=== PATIENT | female | born 1940 | race Caucasian/White ===

== ENCOUNTER 2017-03-24 14:00 | Inpatient (IN) ==
--- NOTE | 2017-03-24 14:57 | Emergency Department Note ---
Disposition Clinical Impression: Confusion Failure to thrive Qualifiers: Failure to thrive age range: in adult Qualified Code(s): R62.7 - Adult failure to thrive Disposition: Admitted As Inpatient Condition: Fair Referrals: Osmar Morrison MD [Primary Care Provider] - Forms: ED Satisfaction Letter Time of Disposition: 19:04 Altered Mental Status HPI - General Chief Complaint: ED Altered Mental Status Stated Complaint: AMS, cancer pt Time Seen by Provider: 03/24/17 14:36 Source: patient, family Limitations: altered mental status Nursing Notes Reviewed: Yes Vital Signs Reviewed: Yes - History of Present Illness HPI Narrative: 77-year-old female with a history of renal cell carcinoma diagnosed in October 2016 who comes in with increasing altered mental status. The patient states that over the last couple of days she's been feeling worse with increased confusion. Recently hospitalized at [facility]. Patient has recently switched her chemotherapy. complaint: altered mental status Onset (ago): day(s) Pain Severity: moderate Context: other Associated symptoms: Reports: other (Altered mental status) - Related Data Home Medications Medication Instructions Recorded Confirmed Atorvastatin Calcium [Lipitor] 20 mg PO HS 12/26/16 03/24/17 Biotin 5,000 mcg PO DAILY 12/26/16 03/24/17 hydroCHLOROthiazide 12.5 mg PO BID 12/26/16 03/24/17 [Hydrochlorothiazide] Cholecalciferol (Vitamin D3) 1,000 unit PO DAILY 03/09/17 03/24/17 [Vitamin D] Ibuprofen [Motrin] 600 mg PO Q8HR PRN 03/09/17 03/24/17 Krill/[place]-3/Dha/Epa/Lipids 1 each PO DAILY 03/09/17 03/24/17 [Krill Oil 300 mg Softgel] Lisinopril [Zestril] 10 mg PO BID 03/09/17 03/24/17 FentaNYL PATCH [Duragesic] 75 mcg TD Q72H 03/24/17 03/24/17 Haloperidol 0.5 mg PO Q6H PRN 03/24/17 03/24/17 Melatonin [Melatin] 3 mg PO HS 03/24/17 03/24/17 Metformin HCl [Glucophage] 1,000 mg PO BID 03/24/17 03/24/17 Omeprazole [PriLOSEC] 20 mg PO DAILY 03/24/17 03/24/17 Ondansetron HCl [Zofran] 4 mg PO AD PRN 03/24/17 03/24/17 OxyCODONE Immed Rel [Roxicodone 10 10 - 20 mg PO Q4H PRN 03/24/17 03/24/17 MG] Polyethylene Glycol 3350 [MiraLAX] 17 gm PO BID PRN 03/24/17 03/24/17 Sennosides [Senna] 17.2 mg PO BID 03/24/17 03/24/17 Allergies Allergy/AdvReac Type Severity Reaction Status Date / Time No Known Allergies Allergy Verified 03/24/17 14:30 All systems ED: reviewed and negative except as stated. Constitutional: Denies: fever, chills, weakness, weight change Eyes: Denies: eye pain, eye discharge, vision change ENT ED: Denies: ear pain, throat pain, dental pain, hearing loss, epistaxis, congestion, dysphagia Cardiovascular: Denies: chest pain, palpitations, dyspnea on exertion, edema, syncope Respiratory: Denies: cough, dyspnea, wheezes, hemoptysis, stridor Gastrointestinal: Denies: abdominal pain, nausea, vomiting, diarrhea, constipation, hematemesis, melena, hematochezia Genitourinary: Denies: dysuria, frequency, hematuria, discharge Musculoskeletal: Denies: back pain, neck pain, arthralgia, myalgia Integumentary: Denies: rash, abrasion, lesions Neurological: Reports: confusion. Denies: headache, weakness, numbness, paresthesias, abnormal gait, vertigo Psychiatric: Denies: anxiety, depression, suicidal thoughts, homicidal thoughts , auditory hallucinations, visual hallucinations Endocrine: Denies: fatigue Hematological/Lymphatic: Denies: easy bleeding, easy bruising Allergic/Immunologic: Denies: facial swelling, urticaria Past Medical History - Past Medical History Medical history: Reports: cancer, diabetes, hyperlipidemia, hypertension, other Psychiatric history: Reports: no psych history SPANISH LINGUIST history: Reports: no SPANISH LINGUIST history - Social History Smoking Status: Never smoker Smokeless Tobacco Status: No Alcohol use: Reports: none Drug use: Reports: none Physical Exam - General Limitations: altered mental status General appearance: alert, in no apparent distress - Head Head exam: atraumatic, normocephalic, normal inspection - Eye Eye exam: Present: normal appearance, PERRL, EOMI - ENT ENT exam: normal exam, normal oropharynx, mucous membranes moist - Neck Neck exam: Present: normal inspection, full ROM, trachea midline - Chest Chest inspection: Present: normal inspection, symmetric chest wall rise - Respiratory Respiratory exam: Present: normal lung sounds bilaterally - Cardiovascular Cardiovascular exam: Present: regular rate, normal rhythm, normal heart sounds - Abdominal Exam Abdominal exam: Present: soft, Non-Tender. Absent: tenderness, distention, guarding, rebound, rigidity - Extremities Exam Extremities exam: Present: normal inspection, full ROM. Absent: tenderness, pedal edema - Expanded Lower Extremity Exam Neurovascular/Tendon exam: Absent: motor deficit, sensory deficit, tendon deficit Gait: observed and normal - Back Exam Back exam: Present: normal inspection, full ROM. Absent: tenderness - Neurological Exam Neurological exam: Present: alert, oriented X3 - Psychiatric Psychiatric exam: Present: normal affect, normal mood - Skin Skin exam: Present: warm, dry, intact, normal color Course - Reevaluation(s) Reevaluation #1: 77-year-old with renal cell carcinoma who comes in with increasing confusion. Patient was admitted for similar complaint at [facility] I did speak to [facility] who indicated that it was accommodation of dehydration possible UTI. The recommendation at this point in time her admission here for IV hydration. Time: 19:04 - Consultations Consultation #1: Discussed with [facility] transfer center they will discuss and call us back with what the recommendations are. Time: 18:24 Consultation #2: Discussed with Dr. Owen GALLEGO, who recommends admission here at the hospital for IV hydration to see if her mentation does not improve Time: 18:56 Consultation #3: Discussed with , admit Time: 19:53 Vital Signs Temperature 97.4 F L 03/24/17 14:30 Pulse Rate 99 03/24/17 14:30 Respiratory Rate 14 03/24/17 14:30 Blood Pressure 121/67 03/24/17 14:30 O2 Sat by Pulse Oximetry 97 03/24/17 14:30 Temperature 97.4 F L 03/24/17 14:30 Pulse Rate 88 03/24/17 16:32 Respiratory Rate 18 03/24/17 16:32 Blood Pressure 150/79 03/24/17 16:32 O2 Sat by Pulse Oximetry 92 03/24/17 16:32 Oxygen Delivery Oxygen Delivery Room Air Altered Mental Status - Lab Data Lab results reviewed: Yes I reviewed the patient's lab results. Result diagrams: 03/24/17 16:12 03/24/17 16:12 Lab Results 03/24/17 03/24/17 03/24/17 Range/Units 15:49 16:12 16:12 WBC 10.6 (4.3-11.1) K/mcL RBC 3.33 L (3.82-4.97) M/mcL Hgb 9.8 L (11.5-15.4) g/dL Hct 30.5 L (35.3-44.9) % MCV 91.6 (83.0-100.0) fL MCH 29.4 (28.0-33.3) pg MCHC 32.1 (31.6-35.5) g/dL RDW 15.5 H (11.5-14.5) % Plt Count 307 (140-400) K/mcL MPV 10.5 (9.4-12.4) fL Immature Gran % 1.9 (0-4) % Seg Neutrophils % 75.7 % Lymphocytes % 9.0 % Monocytes % 9.4 % Eosinophils % 3.6 % Basophils % 0.4 % Neutrophils # 8.0 (1.6-8.9) K/mcL Lymphocytes # 1.0 (0.6-4.6) K/mcL Monocytes # 1.0 (0.0-1.3) K/mcL Eosinophils # 0.4 (0.0-0.6) K/mcL Basophils # 0.0 (0.0-0.2) K/mcL PT 12.0 (9.4-12.1) Seconds INR 1.1 APTT 26.3 (26.0-36.0) Seconds Sodium (136-145) mEq/L Potassium (3.5-5.1) mEq/L Chloride (98-107) mEq/L Carbon Dioxide (23-29) mEq/L BUN (8-23) mg/dL Creatinine (0.60-1.20) mg/dL Est GFR ( Amer) (> 60) Est GFR (Non-Af Amer) (> 60) BUN/Creatinine Ratio (6-26) Glucose (70-105) mg/dL Calculated Osmolality (280-300) Calcium (8.6-10.3) mg/dL Total Bilirubin (0.3-1.0) mg/dL Direct Bilirubin (0.0-0.2) mg/dL Indirect Bilirubin (0.0-1.2) mg/dL AST (13-39) Units/L ALT (7-52) Units/L Alkaline Phosphatase (34-104) Units/L Ammonia (16-53) mcmol/L Troponin I (< 0.04) ng/mL Serum Total Protein (6.4-8.9) g/dL Albumin (3.5-5.7) g/dL Globulin (2.4-3.5) g/dL Albumin/Globulin Ratio (1.1-2.2) Urine Color (Yellow) Urine Clarity (Clear) Urine pH (5.0-8.0) pH Units Ur Specific [place] (1.010-1.025) Urine Protein (Neg-Trace) mg/dL Urine Glucose (UA) (Normal) mg/dL Urine Ketones (Negative) mg/dL Urine Blood (Negative) Urine Nitrite (Negative) Urine Bilirubin (Negative) Urine Urobilinogen (Normal) mg/dL Ur Leukocyte Esterase (Negative) Urine Microscopic RBC (0-3) per hpf Urine Microscopic WBC (0-3) per hpf Ur Squamous Epith Cells (None-Few) per lpf Urine Bacteria (None-Few) per hpf Hyaline Casts (None-Few) per lpf Ur Culture Indicated? (NO) Urine Opiates Screen Positive H (Swmhwm=577) ng/mL Ur Barbiturates Screen Negative (Lpwygl=139) ng/mL Ur Phencyclidine Scrn Negative (Cutoff=25) ng/mL Ur Amphetamines Screen Negative (Quwbim=4434) ng/mL U Benzodiazepines Scrn Negative (Fmonhd=182) ng/mL Urine Cocaine Screen Negative (Cutoff= 300) ng/mL U Marijuana (THC) Screen Negative (Cutoff = 50) ng/mL Ethyl Alcohol (0-10) mg/dL 03/24/17 03/24/17 03/24/17 Range/Units 16:12 16:12 16:12 WBC (4.3-11.1) K/mcL RBC (3.82-4.97) M/mcL Hgb (11.5-15.4) g/dL Hct (35.3-44.9) % MCV (83.0-100.0) fL MCH (28.0-33.3) pg MCHC (31.6-35.5) g/dL RDW (11.5-14.5) % Plt Count (140-400) K/mcL MPV (9.4-12.4) fL Immature Gran % (0-4) % Seg Neutrophils % % Lymphocytes % % Monocytes % % Eosinophils % % Basophils % % Neutrophils # (1.6-8.9) K/mcL Lymphocytes # (0.6-4.6) K/mcL Monocytes # (0.0-1.3) K/mcL Eosinophils # (0.0-0.6) K/mcL Basophils # (0.0-0.2) K/mcL PT (9.4-12.1) Seconds INR APTT (26.0-36.0) Seconds Sodium 127 L (136-145) mEq/L Potassium 3.7 (3.5-5.1) mEq/L Chloride 90 L (98-107) mEq/L Carbon Dioxide 30 H (23-29) mEq/L BUN 18 (8-23) mg/dL Creatinine 1.10 (0.60-1.20) mg/dL Est GFR ( Amer) 59 L (> 60) Est GFR (Non-Af Amer) 48 L (> 60) BUN/Creatinine Ratio 16 (6-26) Glucose 111 H (70-105) mg/dL Calculated Osmolality 267 L (280-300) Calcium 8.8 (8.6-10.3) mg/dL Total Bilirubin 0.4 (0.3-1.0) mg/dL Direct Bilirubin 0.2 (0.0-0.2) mg/dL Indirect Bilirubin 0.2 (0.0-1.2) mg/dL AST 13 (13-39) Units/L ALT 11 (7-52) Units/L Alkaline Phosphatase 101 (34-104) Units/L Ammonia 21 (16-53) mcmol/L Troponin I 0.06 H* (< 0.04) ng/mL Serum Total Protein 5.6 L (6.4-8.9) g/dL Albumin 2.9 L (3.5-5.7) g/dL Globulin 2.7 (2.4-3.5) g/dL Albumin/Globulin Ratio 1.1 (1.1-2.2) Urine Color (Yellow) Urine Clarity (Clear) Urine pH (5.0-8.0) pH Units Ur Specific [place] (1.010-1.025) Urine Protein (Neg-Trace) mg/dL Urine Glucose (UA) (Normal) mg/dL Urine Ketones (Negative) mg/dL Urine Blood (Negative) Urine Nitrite (Negative) Urine Bilirubin (Negative) Urine Urobilinogen (Normal) mg/dL Ur Leukocyte Esterase (Negative) Urine Microscopic RBC (0-3) per hpf Urine Microscopic WBC (0-3) per hpf Ur Squamous Epith Cells (None-Few) per lpf Urine Bacteria (None-Few) per hpf Hyaline Casts (None-Few) per lpf Ur Culture Indicated? (NO) Urine Opiates Screen (Towvzw=542) ng/mL Ur Barbiturates Screen (Jixiqu=302) ng/mL Ur Phencyclidine Scrn (Cutoff=25) ng/mL Ur Amphetamines Screen (Nnigki=8155) ng/mL U Benzodiazepines Scrn (Rkblhi=471) ng/mL Urine Cocaine Screen (Cutoff= 300) ng/mL U Marijuana (THC) Screen (Cutoff = 50) ng/mL Ethyl Alcohol < 10 (0-10) mg/dL 03/24/17 Range/Units 17:21 WBC (4.3-11.1) K/mcL RBC (3.82-4.97) M/mcL Hgb (11.5-15.4) g/dL Hct (35.3-44.9) % MCV (83.0-100.0) fL MCH (28.0-33.3) pg MCHC (31.6-35.5) g/dL RDW (11.5-14.5) % Plt Count (140-400) K/mcL MPV (9.4-12.4) fL Immature Gran % (0-4) % Seg Neutrophils % % Lymphocytes % % Monocytes % % Eosinophils % % Basophils % % Neutrophils # (1.6-8.9) K/mcL Lymphocytes # (0.6-4.6) K/mcL Monocytes # (0.0-1.3) K/mcL Eosinophils # (0.0-0.6) K/mcL Basophils # (0.0-0.2) K/mcL PT (9.4-12.1) Seconds INR APTT (26.0-36.0) Seconds Sodium (136-145) mEq/L Potassium (3.5-5.1) mEq/L Chloride (98-107) mEq/L Carbon Dioxide (23-29) mEq/L BUN (8-23) mg/dL Creatinine (0.60-1.20) mg/dL Est GFR ( Amer) (> 60) Est GFR (Non-Af Amer) (> 60) BUN/Creatinine Ratio (6-26) Glucose (70-105) mg/dL Calculated Osmolality (280-300) Calcium (8.6-10.3) mg/dL Total Bilirubin (0.3-1.0) mg/dL Direct Bilirubin (0.0-0.2) mg/dL Indirect Bilirubin (0.0-1.2) mg/dL AST (13-39) Units/L ALT (7-52) Units/L Alkaline Phosphatase (34-104) Units/L Ammonia (16-53) mcmol/L Troponin I (< 0.04) ng/mL Serum Total Protein (6.4-8.9) g/dL Albumin (3.5-5.7) g/dL Globulin (2.4-3.5) g/dL Albumin/Globulin Ratio (1.1-2.2) Urine Color Yellow (Yellow) Urine Clarity Clear (Clear) Urine pH 6.5 (5.0-8.0) pH Units Ur Specific [place] 1.009 L (1.010-1.025) Urine Protein Negative (Neg-Trace) mg/dL Urine Glucose (UA) Normal (Normal) mg/dL Urine Ketones Negative (Negative) mg/dL Urine Blood Negative (Negative) Urine Nitrite Negative (Negative) Urine Bilirubin Negative (Negative) Urine Urobilinogen Normal (Normal) mg/dL Ur Leukocyte Esterase Trace H (Negative) Urine Microscopic RBC 5-15 H (0-3) per hpf Urine Microscopic WBC 5-15 H (0-3) per hpf Ur Squamous Epith Cells Many H (None-Few) per lpf Urine Bacteria None Seen (None-Few) per hpf Hyaline Casts None Seen (None-Few) per lpf Ur Culture Indicated? NO. (NO) Urine Opiates Screen (Ddqtbl=855) ng/mL Ur Barbiturates Screen (Njkrqi=442) ng/mL Ur Phencyclidine Scrn (Cutoff=25) ng/mL Ur Amphetamines Screen (Lpcgsr=6551) ng/mL U Benzodiazepines Scrn (Cfkwsr=985) ng/mL Urine Cocaine Screen (Cutoff= 300) ng/mL U Marijuana (THC) Screen (Cutoff = 50) ng/mL Ethyl Alcohol (0-10) mg/dL - Radiology Data Radiology results reviewed: Yes I reviewed the patient's radiology results. Head CT 03/24/17 14:52 IMPRESSION: No acute intracranial abnormality. Stable exam. D/ / Jaspal Izaguirre MD / Jaspal Izaguirre MD Interpreting Provider: Jaspal Izaguirre MD - EKG Data EKG attestation: Yes I reviewed and interpreted this EKG. EKG shows normal: sinus rhythm Rate: normal Rhythm: NSR Interpretation: no acute changes TPA Checklist - LKW: 3-4.5 hrs Add. Warnings/Precautions Patient/family understanding: The patient/family members have been counseled and understood the risk, benefit , and alternatives of treatment.
[2017-03-24] MEDS ORDERED: *HR* FentaNYL (PF) 100 MCG/2 ML VIAL IVP ONE ×3 (15:22→19:03)
[2017-03-24] MEDS ORDERED: Ondansetron 4 MG/2 ML VIAL IVP ONE (15:22)
[2017-03-24 16:22] LABS: Amphetamine Screen,Urine Negative ng/mL (Cutoff=1000); Barbiturate Screen,Urine Negative ng/mL (Cutoff=200); Benzodiazepines Screen,Urine Negative ng/mL (Cutoff=200); Cannabinoid Screen,Urine Negative ng/mL (Cutoff = 50); Cocaine Screen,Urine Negative ng/mL (Cutoff= 300); Opiate Screen,Urine Positive ng/mL (Cutoff=300); Phencyclidine Screen,Urine Negative ng/mL (Cutoff=25)
[2017-03-24 16:23] LABS: Basophils % 0.4 %; Eosinophils # 0.4 K/mcL (0.0-0.6); Eosinophils % 3.6 %; Hematocrit 30.5 % (35.3-44.9); Hemoglobin 9.8 g/dL (11.5-15.4); Immature Granulocytes % 1.9 % (0-4); Mean Corpuscular HGB Conc 32.1 g/dL (31.6-35.5); Mean Corpuscular Hemoglobin 29.4 pg (28.0-33.3); Mean Corpuscular Volume 91.6 fL (83.0-100.0); Mean Platelet Volume 10.5 fL (9.4-12.4); Monocytes % 9.4 %; Platelet Count 307 K/mcL (140-400); Red Blood Count 3.33 M/mcL (3.82-4.97); Red Cell Distribution Width 15.5 % (11.5-14.5); Segmented Neutrophils % 75.7 %
[2017-03-24 16:28] LABS: INR 1.1
[2017-03-24 16:30] LABS: Activated Partial Thrombo Time 26.3 Seconds (26.0-36.0)
[2017-03-24 16:43] LABS: Ethanol < 10 mg/dL (0-10)
[2017-03-24 16:50] LABS: Alanine Aminotransferase 11 Units/L (7-52); Albumin 2.9 g/dL (3.5-5.7); Albumin/Globulin Ratio 1.1 (1.1-2.2); Alkaline Phosphatase 101 Units/L (34-104); Aspartate Amino Transferase 13 Units/L (13-39); BUN/Creatinine Ratio 16 (6-26); Bilirubin,Direct 0.2 mg/dL (0.0-0.2); Bilirubin,Indirect 0.2 mg/dL (0.0-1.2); Bilirubin,Total 0.4 mg/dL (0.3-1.0); Blood Urea Nitrogen 18 mg/dL (8-23); Calcium 8.8 mg/dL (8.6-10.3); Carbon Dioxide 30 mEq/L (23-29); Chloride 90 mEq/L (98-107); Globulin 2.7 g/dL (2.4-3.5); Glucose 111 mg/dL (70-105); Osmolality,Calculated 267 (280-300); Potassium 3.7 mEq/L (3.5-5.1); Sodium 127 mEq/L (136-145); Total Protein 5.6 g/dL (6.4-8.9); eGFR For African Americans 59 (> 60); eGFR For Non-African Americans 48 (> 60)
[2017-03-24 17:30] LABS: Bilirubin,Urine Negative (Negative); Blood,Urine Negative (Negative); Clarity,Urine Clear (Clear); Color,Urine Yellow (Yellow); Glucose,Urine (UA) Normal (Normal); Ketones,Urine Negative (Negative); Leukocyte Esterase,Urine Trace (Negative); Nitrite,Urine Negative (Negative); PH,Urine 6.5 pH Units (5.0-8.0); Protein,Urine Negative (Neg-Trace); Specific Gravity,Urine 1.009 (1.010-1.025); Urobilinogen,Urine Normal (Normal)
[2017-03-24 17:32] LABS: Bacteria,Urine None Seen per hpf (None-Few); Hyaline Casts,Urine None Seen per lpf (None-Few); Squamous Epithelial Cell,Urine Many per lpf (None-Few)
[2017-03-24] MEDS ORDERED: *HR* FentaNYL (PF) 100 MCG/2 ML VIAL ONE (18:59)
[2017-03-24] MEDS ORDERED: 0.9 % Sodium Chloride 1,000 ML IVC ONE (19:00)
[2017-03-24] MEDS ORDERED: MOM Conc 10 ML UD.LIQ PO PRN (19:52)
[2017-03-24] MEDS ORDERED: Naloxone 0.4 MG/ML INJ IVP PRN (19:52)
[2017-03-24] MEDS ORDERED: Acetaminophen 325 MG TABLET PO PRN (19:52)
[2017-03-24 20:33] LABS: ABG Base Excess 4 mEq/L (-2 to 3); ABG HCO3 28 mEq/L (21-27); ABG Oxygen Saturation 98 % (95-98); ABG PCO2 37 mmHg (35-45); ABG PH 7.48 pH Units (7.32-7.45); ABG PO2 97 mmHg (85-104); ABG TCO2 29 mEq/L (20-26)
--- NOTE | 2017-03-24 21:58 | Internal Med History&Physical ---
Date of Encounter: 03/24/17 Time of Encounter: 21:00 Assessment and Plan (1) Acute delirium Current visit: Yes Status: Acute Will admit the pt into Tele Her delirium mostly due to acute metabolic encephalopathy with dehydration + Narcotic induced too Cont close monitoring cut back on her PO Oxycodone dose Cont Fentanyl patch on Tele (2) Acute metabolic encephalopathy Current visit: Yes Status: Acute (3) Elevated troponin Current visit: Yes Status: Acute Slightly elevated Trop due to dehdyration and demand ischemia She denied any CP placed her on Tele check serial trop will get an EKG now (4) Dehydration Current visit: Yes Status: Acute Cont IV hydration (5) Hyponatremia Current visit: Yes Status: Acute Mild hyponatremia mostly due to hypovolemic cont close monitoring IV hydration (6) Renal cell cancer Current visit: Yes Status: Acute Need to f/u with Heme Onc as [facility] as an out pt Qualifiers: Laterality: left Qualified Code(s): C64.2 - Malignant neoplasm of left kidney, except renal pelvis (7) CKD (chronic kidney disease) stage 2, GFR 60-89 ml/min Current visit: Yes Status: Acute Stable Cr (8) HTN (hypertension) Current visit: Yes Status: Acute Slightly elevated due to pain cont Home PO meds Also started her on IV PRN Hydralazine Qualifiers: Qualified Code(s): I10 - Essential (primary) hypertension (9) HLD (hyperlipidemia) Current visit: Yes Status: Acute on Statin Qualifiers: Qualified Code(s): E78.5 - Hyperlipidemia, unspecified Internal Medicine - H&P: HPI Chief complaint: Confusion and back pain Admitted From: Emergency Dept Plans for Post Hospital Care: Home History of present illness: Ms. Pacheco is a 77 year old female with known HTN, HLD, DM2, Left renal cell cancer dx in 2016 s/p Partial Left nephrectomy in Nov 2016, currently on active chemo therapy and multiple narcotic pain medication who presented to ER with confusion fro last 2-3 days and severe lower back pain. She denied any CP/ SOB. NO fever / chills. No dysuria. No GI symptoms. Pt did mention recently at [facility] cancer center they switched her Chemo medication. Pt is alert, awake and O x3 now, does not look confused or disoriented. Past Med Surg Social Fam HX - Past Medical History Medical history: cancer, diabetes, hyperlipidemia, hypertension, other Psychiatric history: no psych history - Past Surgical History Surgical History: other (Nephrectomy) - Social History Smoking Status: Never smoker Smokeless Tobacco Status: No Alcohol use: none Drug use: none - Additional Family History Additional family history: Reviewed and noncontribuitory to current problem Internal Medicine - H&P: Meds Atorvastatin Calcium [Lipitor] 20 mg PO HS 12/26/16 [History] Biotin 5,000 mcg PO DAILY 12/26/16 [History] hydroCHLOROthiazide [Hydrochlorothiazide] 12.5 mg PO BID 12/26/16 [History] Cholecalciferol (Vitamin D3) [Vitamin D] 1,000 unit PO DAILY 03/09/17 [History] Ibuprofen [Motrin] 600 mg PO Q8HR PRN 03/09/17 [History] Krill/[place]-3/Dha/Epa/Lipids [Krill Oil 300 mg Softgel] 1 each PO DAILY [History] Lisinopril [Zestril] 10 mg PO BID 03/09/17 [History] FentaNYL PATCH [Duragesic] 75 mcg TD Q72H 03/24/17 [History] Haloperidol 0.5 mg PO Q6H PRN 03/24/17 [History] Melatonin [Melatin] 3 mg PO HS 03/24/17 [History] Metformin HCl [Glucophage] 1,000 mg PO BID 03/24/17 [History] Omeprazole [PriLOSEC] 20 mg PO DAILY 03/24/17 [History] Ondansetron HCl [Zofran] 4 mg PO AD PRN 03/24/17 [History] OxyCODONE Immed Rel [Roxicodone 10 MG] 10 - 20 mg PO Q4H PRN 03/24/17 [History] Polyethylene Glycol 3350 [MiraLAX] 17 gm PO BID PRN 03/24/17 [History] Sennosides [Senna] 17.2 mg PO BID 03/24/17 [History] 3 Allergy/AdvReac Type Severity Reaction Status Date / Time No Known Allergies Allergy Verified 03/24/17 14:30 All Systems PM: A 10-system review of systems was performed and is negative for pertinent findings except as documented above in the HPI. Review of systems: All the systems are reviewed everything is benign except the systems and symptoms I mentioned in the history of present illness - Constitutional Vitals: Temp Pulse Resp BP Pulse Ox 97.6 F 90 16 165/90 98 03/24/17 20:38 03/24/17 20:38 03/24/17 20:45 03/24/17 20:45 03/24/17 20:38 General appearance: Present: cooperative, A&O X 3, answers questions appropriately - Head Head exam: Present: atraumatic, normal inspection - Neck Neck exam general surgery: Present: supple - Respiratory Respiratory exam: Present: decreased breath sounds. Absent: rales, respiratory distress, rhonchi, wheezes - Cardiovascular Cardiovascular exam: Present: RRR, +S1, +S2. Absent: tachycardia - GI/Abdominal GI/Abdominal exam: Present: normal bowel sounds, soft. Absent: rebound, rigid, tenderness - Extremities Exam Extremities exam: Absent: calf tenderness, pedal edema, tenderness - Back Exam Back exam: Present: CVA tenderness (L). Absent: CVA tenderness (R), paraspinal tenderness, vertebral tenderness - Neurological Exam Neurological exam: Present: alert, CN II-XII intact, oriented X3, reflexes normal, no focal deficits, strengths equal and symetr throughout. Absent: pronater drift, facial droop, speech deficit - Psychiatric Psychiatric exam: Present: anxious - Skin Skin exam: Absent: rash Internal Med - H&P Results - Labs CBC & Chem 7: 03/24/17 16:12 03/24/17 16:12 - ABG Interpretation ABG results: 03/24/17 20:24 ABG pH 7.48 H ABG pCO2 37 ABG pO2 97 ABG HCO3 28 H ABG Total CO2 29 H ABG O2 Saturation 98 ABG Base Excess 4 H
[2017-03-24] MEDS ORDERED: *HR* FentaNYL PATCH 75 MCG PATCH TD SCH (22:00)
[2017-03-24] MEDS ORDERED: *HR* Dextrose 50 % in Water (Syg) 50 ML SYRINGE IVP PRN (22:14)
[2017-03-24] MEDS ORDERED: Dextrose Gel 15 GM/37.5 ML TUBE PO PRN ×2 (22:14)
[2017-03-24] MEDS ORDERED: D5% in Water 1,000 ML IVC PRN (22:14)
[2017-03-24] MEDS ORDERED: 0.9 % Sodium Chloride 1,000 ML IVC SCH (22:15)
[2017-03-25] MEDS: Melatonin 3 MG TABLET PO SCH ×2 (01:38→21:13)
[2017-03-25] MEDS: *HR* OxyCODONE Immed Rel 5 MG TABLET PO PRN ×4 (03:51→21:12)
[2017-03-25] MEDS: *HR* Enoxaparin 40 MG/0.4 ML SYRINGE SQ SCH (05:29)
[2017-03-25 07:34] LABS: Basophils # 0.1 K/mcL (0.0-0.2); Basophils % 0.6 %; Eosinophils # 0.4 K/mcL (0.0-0.6); Eosinophils % 3.4 %; Hematocrit 31.6 % (35.3-44.9); Lymphocytes # 0.9 K/mcL (0.6-4.6); Lymphocytes % 8.7 %; Mean Corpuscular HGB Conc 31.6 g/dL (31.6-35.5); Mean Corpuscular Hemoglobin 29.2 pg (28.0-33.3); Mean Corpuscular Volume 92.1 fL (83.0-100.0); Mean Platelet Volume 11.1 fL (9.4-12.4); Monocytes % 9.1 %; Neutrophils # 8.2 K/mcL (1.6-8.9); Platelet Count 295 K/mcL (140-400); Red Blood Count 3.43 M/mcL (3.82-4.97); Red Cell Distribution Width 15.5 % (11.5-14.5); Segmented Neutrophils % 76.2 %
[2017-03-25 08:13] LABS: BUN/Creatinine Ratio 17 (6-26); Blood Urea Nitrogen 14 mg/dL (8-23); Calcium 8.5 mg/dL (8.6-10.3); Carbon Dioxide 26 mEq/L (23-29); Chloride 95 mEq/L (98-107); Chol/HDL Ratio 3.2 (0-4.9); Cholesterol 95 mg/dL (< 200); Glucose 108 mg/dL (70-105); HDL Cholesterol 30 mg/dL (40-59); LDL Cholesterol,Calculated 33 mg/dL (0-99); Magnesium 1.4 mg/dL (1.6-2.6); Osmolality,Calculated 277 (280-300); Potassium 3.5 mEq/L (3.5-5.1); Sodium 133 mEq/L (136-145); Triglycerides 162 mg/dL (< 150); eGFR For African Americans > 60 (> 60); eGFR For Non-African Americans > 60 (> 60)
[2017-03-25] MEDS: Sennosides 8.6 MG TABLET PO SCH ×2 (08:51→21:12)
[2017-03-25] MEDS: Cholecalciferol (D-3) 1,000 UNIT TABLET PO SCH (08:51)
[2017-03-25] MEDS: *HR* HYDROcodone/Acet 5/325 mg TABLET PO PRN ×2 (08:51→18:52)
[2017-03-25] MEDS: Insulin LISPRO 300 UNITS/3 ML VIAL SQ SCH ×4 (08:56→21:12)
[2017-03-25] MEDS ORDERED: (Biotin [Biotin] 5,000 MCG) PO SCH (09:00)
[2017-03-25] MEDS: Ondansetron 4 MG/2 ML VIAL IVP PRN ×2 (12:00→22:36)
[2017-03-25] MEDS: *HR* Promethazine 25 MG/ML VIAL IVP PRN (16:00)
--- NOTE | 2017-03-25 16:36 | Internal Med Progress Note ---
Date of Encounter: 03/25/17 Time of Encounter: 09:20 - Assessment and plan (1) Acute encephalopathy Current Visit: Yes Status: Acute Assessment and plan: likely toxic/metabolic; due to poor oral intake, narcotic pain medications in the setting of renal cell cancer with peritoneal metastases. Mental status improving, patient continues to require pain medications for severe cancer related abdominal pain. We will decrease Percocet and continue to monitor. Case discussed with [facility] transfer center, who reviewed patient's records and confirmed she has a follow-up appointment with her oncologist Dr. Negrete on 2017. Her oncologist is aware of new retroperitoneal and peritoneal metastatic disease on CT abdomen done on March 02. Plan of care discussed with patient's , Mr. Tonny Pacheco, on phone-he confirmed worsening metastatic disease, recently started on new round of chemotherapy, agreed that dosage of narcotic pain medications is higher than usual (20mg Q4HRLY per her recent [facility] discharge instructions); he also agrees that patient has been doing poorly and agreeable to discharge tomorrow if she is more stable and to follow up with oncology as outpatient. (2) Diabetes mellitus Current Visit: Yes Status: Chronic Assessment and plan: Continue Accu-Chek blood glucose monitoring with sliding scale insulin as needed. Diabetic diet. Qualifiers: Diabetes mellitus type: type 2 Diabetes mellitus complication status: with unspecified complications Diabetes mellitus residential insulin use: without predatory animal exterminator use Qualified Code(s): E11.8 - Type 2 diabetes mellitus with unspecified complications (3) Renal cell cancer Current Visit: Yes Status: Chronic Assessment and plan: Status post partial nephrectomy. Follows with oncology Dr. Negrete at [facility]. Recently started on chemotherapy. Qualifiers: Laterality: left Qualified Code(s): C64.2 - Malignant neoplasm of left kidney, except renal pelvis (4) HTN (hypertension) Current Visit: Yes Status: Chronic Qualifiers: Hypertension type: essential hypertension Qualified Code(s): I10 - Essential (primary) hypertension (5) HLD (hyperlipidemia) Current Visit: Yes Status: Chronic Qualifiers: Hyperlipidemia type: unspecified Qualified Code(s): E78.5 - Hyperlipidemia , unspecified (6) Dehydration Current Visit: Yes Status: Acute Assessment and plan: Improving. Serum creatinine is improving. Continue IV hydration. Poor oral intake due to renal cancer. (7) Hyponatremia Current Visit: Yes Status: Acute Assessment and plan: Hypoosmolar hypovolemic. Serum sodium improved to 133 today, continue IV hydration. (8) Elevated troponin Current Visit: Yes Status: Acute Assessment and plan: Likely demand ischemia from dehydration. Serum troponins normalized today. - Subjective Interval history: Reports abdominal pain. Able to tell me her name, where she is and the reason for admission. Does not remember complete details of her medical history but is able to answer appropriately for the most part. Denies vomiting, diarrhea, chest pain, shortness of breath. - Constitutional Vitals: Temp Pulse Resp BP Pulse Ox 97.6 F 99 17 162/82 91 03/25/17 15:59 03/25/17 15:59 03/25/17 15:59 03/25/17 15:59 03/25/17 15:59 General appearance: Present: cooperative, A&O X 2, mild distress, answers questions appropriately - Respiratory Respiratory exam: Present: CTAB. Absent: accessory muscle use, rales, rhonchi, wheezes - Cardiovascular Cardiovascular exam: Present: RRR, +S1, +S2. Absent: diastolic murmur, gallop, rubs, systolic murmur - GI/Abdominal GI/Abdominal exam: Present: normal bowel sounds, soft (Tenderness in right and left lower quadrants, no guarding or rigidity), no peritoneal signs. Absent: distended, tenderness - Extremities Exam Extremities exam: Present: full ROM, warm, radial pulses palpable and symmetrical. Absent: calf tenderness, cyanotic, pedal edema - Neurological Exam Neurological exam: Present: CN II-XII intact, oriented X3, no focal deficits. Absent: pronater drift, facial droop, speech deficit Internal Medicine: Result - Labs CBC & Chem 7: 03/25/17 06:29 03/25/17 06:29 Labs: Short CBC 03/25/17 Range/Units 06:29 WBC 10.8 (4.3-11.1) K/mcL Hgb 10.0 L (11.5-15.4) g/dL Hct 31.6 L (35.3-44.9) % Plt Count 295 (140-400) K/mcL Neutrophils # 8.2 (1.6-8.9) K/mcL BMP 03/25/17 06:29 Sodium 133 L Potassium 3.5 Chloride 95 L Carbon Dioxide 26 BUN 14 Creatinine 0.81 Glucose 108 H Calcium 8.5 L Cardiac Enzymes 03/25/17 03/25/17 Range/Units 00:53 06:29 Troponin I < 0.03 < 0.03 (< 0.04) ng/mL - ABG Interpretation ABG results: ABG ABG pH 7.48 pH Units (7.32-7.45) H 03/24/17 20:24 ABG pCO2 37 mmHg (35-45) 03/24/17 20:24 ABG pO2 97 mmHg (85-104) 03/24/17 20:24 ABG O2 Saturation 98 % (95-98) 03/24/17 20:24 PT/INR, D-dimer PT 12.0 Seconds (9.4-12.1) 03/24/17 16:12 Consult Discharge Plan - Plan Referrals: Osmar Morrison MD [Primary Care Provider] -
[2017-03-26] MEDS: *HR* OxyCODONE Immed Rel 5 MG TABLET PO PRN ×5 (01:27→21:02)
[2017-03-26 05:18] LABS: Basophils # 0.1 K/mcL (0.0-0.2); Basophils % 0.3 %; Eosinophils # 0.2 K/mcL (0.0-0.6); Hematocrit 30.9 % (35.3-44.9); Hemoglobin 10.2 g/dL (11.5-15.4); Immature Granulocytes % 1.3 % (0-4); Lymphocytes # 0.9 K/mcL (0.6-4.6); Lymphocytes % 5.9 %; Mean Corpuscular Hemoglobin 29.7 pg (28.0-33.3); Mean Corpuscular Volume 90.1 fL (83.0-100.0); Mean Platelet Volume 10.1 fL (9.4-12.4); Monocytes # 1.6 K/mcL (0.0-1.3); Monocytes % 9.8 %; Platelet Count 338 K/mcL (140-400); Red Blood Count 3.43 M/mcL (3.82-4.97); Red Cell Distribution Width 15.6 % (11.5-14.5); Segmented Neutrophils % 81.7 %
[2017-03-26 05:44] LABS: BUN/Creatinine Ratio 20 (6-26); Blood Urea Nitrogen 13 mg/dL (8-23); Calcium 8.6 mg/dL (8.6-10.3); Carbon Dioxide 27 mEq/L (23-29); Chloride 95 mEq/L (98-107); Glucose 132 mg/dL (70-105); Magnesium 1.6 mg/dL (1.6-2.6); Osmolality,Calculated 274 (280-300); Potassium 3.7 mEq/L (3.5-5.1); Sodium 131 mEq/L (136-145); eGFR For African Americans > 60 (> 60); eGFR For Non-African Americans > 60 (> 60)
[2017-03-26] MEDS: *HR* Enoxaparin 40 MG/0.4 ML SYRINGE SQ SCH (05:56)
[2017-03-26] MEDS: Sennosides 8.6 MG TABLET PO SCH ×2 (07:59→21:02)
[2017-03-26] MEDS: Cholecalciferol (D-3) 1,000 UNIT TABLET PO SCH (08:00)
[2017-03-26] MEDS: Lisinopril 20 MG TABLET PO SCH ×2 (10:07→21:02)
[2017-03-26] MEDS: 0.9 % Sodium Chloride 1,000 ML IVC SCH (10:14)
[2017-03-26] MEDS: Insulin LISPRO 300 UNITS/3 ML VIAL SQ SCH ×4 (10:15→21:01)
--- NOTE | 2017-03-26 15:06 | Internal Med Progress Note ---
Date of Encounter: 03/26/17 Time of Encounter: 10:00 - Assessment and plan (1) Acute encephalopathy Current Visit: Yes Status: Acute Assessment and plan: likely toxic/metabolic; due to poor oral intake, narcotic pain medications in the setting of renal cell cancer with peritoneal metastases. Mental status currently at baseline, alert and oriented. patient continues to require pain medications for severe cancer related abdominal pain. Noted to have leukocytosis today, with neutrophil predominance, no source of infection. Continue to monitor. (2) Diabetes mellitus Current Visit: Yes Status: Chronic Assessment and plan: Continue Accu-Chek blood glucose monitoring with sliding scale insulin as needed. Diabetic diet. Blood sugars well controlled. Qualifiers: Diabetes mellitus type: type 2 Diabetes mellitus complication status: with unspecified complications Diabetes mellitus buttermaker helper insulin use: without buttermaker helper use Qualified Code(s): E11.8 - Type 2 diabetes mellitus with unspecified complications (3) Renal cell cancer Current Visit: Yes Status: Chronic Assessment and plan: Status post partial nephrectomy. Follows with oncology Dr. Negrete at [facility]. Recently started on chemotherapy. Qualifiers: Laterality: left Qualified Code(s): C64.2 - Malignant neoplasm of left kidney, except renal pelvis (4) HTN (hypertension) Current Visit: Yes Status: Chronic Assessment and plan: Blood pressure noted to be uncontrolled. We will increase dose of lisinopril and start metoprolol as she is also noted to have some tachycardia. Continue to monitor blood pressure. Qualifiers: Hypertension type: essential hypertension Qualified Code(s): I10 - Essential (primary) hypertension (5) HLD (hyperlipidemia) Current Visit: Yes Status: Chronic Qualifiers: Hyperlipidemia type: unspecified Qualified Code(s): E78.5 - Hyperlipidemia , unspecified (6) Dehydration Current Visit: Yes Status: Acute Assessment and plan: Continue IV hydration. (7) Hyponatremia Current Visit: Yes Status: Acute Assessment and plan: Hypoosmolar hypovolemic. Serum sodium at 131, will continue IV hydration. (8) Elevated troponin Current Visit: Yes Status: Resolved Assessment and plan: Likely demand ischemia from dehydration. Serum troponins normalized today. - Subjective Interval history: Feels better today. Improving abdominal pain. No nausea, vomiting, diarrhea. Patient wishes to be discharged home. - Constitutional Vitals: Temp Pulse Resp BP Pulse Ox 97.3 F L 96 17 155/99 98 03/26/17 12:39 03/26/17 12:39 03/26/17 12:39 03/26/17 12:39 03/26/17 12:39 General appearance: Present: cooperative, A&O X 3, answers questions appropriately - Respiratory Respiratory exam: Present: CTAB. Absent: accessory muscle use, rales, rhonchi, wheezes - Cardiovascular Cardiovascular exam: Present: RRR, +S1, +S2. Absent: diastolic murmur, gallop, rubs, systolic murmur - GI/Abdominal GI/Abdominal exam: Present: normal bowel sounds, soft, no peritoneal signs. Absent: distended, tenderness - Extremities Exam Extremities exam: Present: full ROM, warm, radial pulses palpable and symmetrical. Absent: calf tenderness, cyanotic, pedal edema Internal Medicine: Result - Labs CBC & Chem 7: 03/26/17 05:04 03/26/17 05:04 Labs: Short CBC 03/26/17 Range/Units 05:04 WBC 15.9 H (4.3-11.1) K/mcL Hgb 10.2 L (11.5-15.4) g/dL Hct 30.9 L (35.3-44.9) % Plt Count 338 (140-400) K/mcL Neutrophils # 13.0 H (1.6-8.9) K/mcL BMP 03/26/17 05:04 Sodium 131 L Potassium 3.7 Chloride 95 L Carbon Dioxide 27 BUN 13 Creatinine 0.66 Glucose 132 H Calcium 8.6 - ABG Interpretation ABG results: ABG ABG pH 7.48 pH Units (7.32-7.45) H 03/24/17 20:24 ABG pCO2 37 mmHg (35-45) 03/24/17 20:24 ABG pO2 97 mmHg (85-104) 03/24/17 20:24 ABG O2 Saturation 98 % (95-98) 03/24/17 20:24 PT/INR, D-dimer PT 12.0 Seconds (9.4-12.1) 03/24/17 16:12 - VTE Documentation of Mechanical Device: Intermittent pneumatic compression device Consult Discharge Plan - Plan Referrals: Osmar Morrison MD [Primary Care Provider] -
[2017-03-26] MEDS: Ondansetron 4 MG/2 ML VIAL IVP PRN (16:40)
[2017-03-26] MEDS: Melatonin 3 MG TABLET PO SCH (21:03)
[2017-03-27] MEDS: 0.9 % Sodium Chloride 1,000 ML IVC SCH (00:06)
[2017-03-27] MEDS: *HR* OxyCODONE Immed Rel 5 MG TABLET PO PRN ×3 (03:42→15:36)
[2017-03-27] MEDS: *HR* HYDROcodone/Acet 5/325 mg TABLET PO PRN ×2 (05:50→11:46)
[2017-03-27 05:56] LABS: Basophils # 0.1 K/mcL (0.0-0.2); Basophils % 0.4 %; Eosinophils # 0.2 K/mcL (0.0-0.6); Hematocrit 31.6 % (35.3-44.9); Hemoglobin 10.2 g/dL (11.5-15.4); Lymphocytes # 0.9 K/mcL (0.6-4.6); Lymphocytes % 5.6 %; Mean Corpuscular HGB Conc 32.3 g/dL (31.6-35.5); Mean Corpuscular Hemoglobin 29.4 pg (28.0-33.3); Mean Corpuscular Volume 91.1 fL (83.0-100.0); Mean Platelet Volume 10.4 fL (9.4-12.4); Monocytes # 1.6 K/mcL (0.0-1.3); Monocytes % 9.8 %; Neutrophils # 12.9 K/mcL (1.6-8.9); Platelet Count 317 K/mcL (140-400); Red Blood Count 3.47 M/mcL (3.82-4.97); Red Cell Distribution Width 15.6 % (11.5-14.5); Segmented Neutrophils % 81.2 %
[2017-03-27] MEDS: *HR* Enoxaparin 40 MG/0.4 ML SYRINGE SQ SCH (06:18)
[2017-03-27 06:20] LABS: BUN/Creatinine Ratio 19 (6-26); Blood Urea Nitrogen 13 mg/dL (8-23); Calcium 8.3 mg/dL (8.6-10.3); Carbon Dioxide 27 mEq/L (23-29); Chloride 95 mEq/L (98-107); Glucose 135 mg/dL (70-105); Magnesium 1.4 mg/dL (1.6-2.6); Osmolality,Calculated 274 (280-300); Potassium 3.5 mEq/L (3.5-5.1); Sodium 131 mEq/L (136-145); eGFR For African Americans > 60 (> 60); eGFR For Non-African Americans > 60 (> 60)
--- NOTE | 2017-03-27 07:26 | Electrocardiograph Report ---
[address] [place] [address] Test Date: 2017-03-24 Pat Name: Selina Pacheco Department: 103 Room: 2A43 Gender: F Gastroenterology Manager: SERENA : 1940 Requested By: Galen Mallory Order Number: [id number] Reading MD: Petr Swain MD Measurements Intervals [place] Rate: 87 P: 15 UT: 150 QRS: -20 QRSD: 76 T: 19 QT: 368 QTc: 412 Interpretive Statements SINUS RHYTHM Electronically Signed On 03-27-2017 7:25:12 EST by Petr Swain MD
[2017-03-27] MEDS: Insulin LISPRO 300 UNITS/3 ML VIAL SQ SCH ×2 (07:58→11:47)
[2017-03-27] MEDS: Sennosides 8.6 MG TABLET PO SCH (08:08)
[2017-03-27] MEDS: Cholecalciferol (D-3) 1,000 UNIT TABLET PO SCH (08:08)
[2017-03-27] MEDS: Lisinopril 20 MG TABLET PO SCH (08:08)
[2017-03-27] MEDS: Ondansetron 4 MG/2 ML VIAL IVP PRN (08:19)
[2017-03-27] MEDS ORDERED: amLODIPine 5 MG TABLET PO SCH (09:00)
[2017-03-27] MEDS: *HR* Promethazine 25 MG/ML VIAL IVP PRN (13:59)
--- NOTE | 2017-03-27 14:55 | Discharge Summary ---
Date of Encounter: 03/27/17 Time of Encounter: 09:40 - Discharge Diagnosis (1) Acute encephalopathy Priority: Primary Status: Acute (2) Diabetes mellitus Priority: Secondary Status: Chronic Qualifiers: Diabetes mellitus type: type 2 Diabetes mellitus complication status: with unspecified complications Diabetes mellitus terminal clerk insulin use: without terminal clerk use Qualified Code(s): E11.8 - Type 2 diabetes mellitus with unspecified complications (3) Renal cell cancer Priority: Secondary Status: Chronic Qualifiers: Laterality: left Qualified Code(s): C64.2 - Malignant neoplasm of left kidney, except renal pelvis (4) HTN (hypertension) Priority: Secondary Status: Chronic Qualifiers: Hypertension type: essential hypertension Qualified Code(s): I10 - Essential (primary) hypertension (5) HLD (hyperlipidemia) Priority: Secondary Status: Chronic Qualifiers: Hyperlipidemia type: unspecified Qualified Code(s): E78.5 - Hyperlipidemia , unspecified (6) Dehydration Priority: Primary Status: Acute (7) Hyponatremia Priority: Primary Status: Acute (8) Elevated troponin Priority: Primary Status: Resolved (9) Cancer related pain Priority: Primary Status: Chronic - Discharge Medications Prescriptions: amLODIPine [Norvasc] 10 mg PO DAILY #30 tablet Lisinopril [Zestril] 20 mg PO BID #60 tablet Magnesium Oxide [Mag-Ox] 400 mg PO BID #20 tablet Metoprolol [Lopressor] 25 mg PO BID #60 tablet Home Medications: Atorvastatin Calcium [Lipitor] 20 mg PO HS 12/26/16 [History] Biotin 5,000 mcg PO DAILY 12/26/16 [History] Cholecalciferol (Vitamin D3) [Vitamin D3] 1,000 unit PO DAILY 03/09/17 [History] Ibuprofen [Motrin] 600 mg PO Q8HR PRN 03/09/17 [History] Krill/[place]-3/Dha/Epa/Lipids [Krill Oil 300 mg Softgel] 1 each PO DAILY [History] FentaNYL PATCH [Duragesic] 75 mcg TD Q72H 03/24/17 [History] Haloperidol 0.5 mg PO Q6H PRN 03/24/17 [History] Melatonin [Melatin] 3 mg PO HS 03/24/17 [History] Metformin HCl [Glucophage] 1,000 mg PO BID 03/24/17 [History] Omeprazole [PriLOSEC] 20 mg PO DAILY 03/24/17 [History] Ondansetron HCl [Zofran] 4 mg PO AD PRN 03/24/17 [History] Polyethylene Glycol 3350 [MiraLAX] 17 gm PO BID PRN 03/24/17 [History] Sennosides [Senna] 17.2 mg PO BID 03/24/17 [History] Lisinopril [Zestril] 20 mg PO BID #60 tablet 03/27/17 [Rx] Magnesium Oxide [Mag-Ox] 400 mg PO BID #20 tablet 03/27/17 [Rx] Metoprolol [Lopressor] 25 mg PO BID #60 tablet 03/27/17 [Rx] OxyCODONE Immed Rel [Roxicodone 10 MG] 10 mg PO Q4H PRN 10 Days 03/27/17 [Rx] amLODIPine [Norvasc] 10 mg PO DAILY #30 tablet 03/27/17 [Rx] Allergies/Adverse Reactions: 3 Allergy/AdvReac Type Severity Reaction Status Date / Time No Known Allergies Allergy Verified 03/24/17 14:30 Date of admission: 03/24/17 20:08 Primary care physician: Osmar Morrison MD Discharging clinician: Bailey Coleman Anticipated date of discharge: 03/27/17 - Patient Status Disposition: Home Health Service Condition: Fair Functional capacity at discharge: uses cane/walker Overall status at discharge: patient is progressing back to baseline - Discharge Instructions Instructions: Metoprolol (By mouth), Lisinopril (By mouth), Amlodipine (By mouth), Magnesium Sulfate (By mouth) Follow Up With: Osmar Morrison MD [Primary Care Provider] - 04/04/17 11:30 am () Additional Instructions: F/up with PCP in 1-2 weeks F/up with at [facility] on 03/31/17 - Diet and Activity Activity: as per physical therapy Diet: diabetic diet, low fat, low cholesterol, low salt diet Hospital course: Ms. Pacheco is a 77 year old female with the above medical problems including renal cell carcinoma, who was admitted with confusion and altered mental status. No source of infection was found at admission. Her encephalopathy was thought to be metabolic/toxic due to polypharmacy including narcotic pain medications, mild hyponatremia, hypomagnesemia. Patient was started on IV hydration, electrolytes were repleted. Her mental status gradually improved back to baseline. Patient continued to report significant abdominal pain, requiring frequent narcotic pain medications. Case discussed with [facility] transfer center, who reviewed patient's records and confirmed she has a follow-up appointment with her oncologist Dr. Negrete on 2017. Her oncologist is aware of new retroperitoneal and peritoneal metastatic disease on CT abdomen done on March 02. Plan of care discussed with patient's , Mr. Tonny Pacheco, on phone-he confirmed worsening metastatic disease, recently started on new round of chemotherapy, agreed that dosage of narcotic pain medications is higher than usual (20mg Q4HRLY per her recent [facility] discharge instructions); Patient is noted to have mild leukocytosis, WBC count remained stable at 15.9 between yesterday and today. Serum sodium is noted to be stable at 131. She did receive adequate IV hydration. Urine sodium noted to be 11, suggestive of hypovolemia. Blood pressure was noted to be uncontrolled, lisinopril has been increased, metoprolol and Norvasc have been added. Hydrochlorothiazide is being held due to hyponatremia and dehydration. Patient is currently tolerating diet, abdominal pain is somewhat improved, medically stable for discharge with outpatient follow-up. - Time Spent with Patient Total time spent providing and/or coordinating discharge services: Greater than 30 minutes (40 min) - Constitutional Vitals: Temp Pulse Resp BP Pulse Ox 97.4 F L 93 16 167/84 93 03/27/17 11:38 03/27/17 11:38 03/27/17 11:38 03/27/17 11:38 03/27/17 11:38 General appearance: Present: cooperative, A&O X 3, answers questions appropriately - Cardiovascular Cardiovascular exam: Present: RRR, +S1, +S2. Absent: diastolic murmur, gallop, rubs, systolic murmur - VTE Documentation of Mechanical Device: Intermittent pneumatic compression device
--- NOTE | 2017-03-27 15:00 | Physician Discharge Referral ---
Home Health/Hosp Referral Info Transfer to: Home Health Attending Provider: Bailey Coleman Provider in Charge Post Discharge: PCP - Diagnosis (1) Acute encephalopathy Priority: Primary Status: Acute (2) Diabetes mellitus Priority: Secondary Status: Chronic (3) Renal cell cancer Priority: Secondary Status: Chronic (4) HTN (hypertension) Priority: Secondary Status: Chronic (5) HLD (hyperlipidemia) Priority: Secondary Status: Chronic (6) Dehydration Priority: Primary Status: Acute (7) Hyponatremia Priority: Primary Status: Acute (8) Elevated troponin Priority: Primary Status: Resolved (9) Cancer related pain Priority: Primary Status: Chronic - Respiratory Orders Smoking Cessation: Smoking cessation has been advised. For more information, call the [place] Tobacco Quit Line at 7-084-VWKL-NOW. - Diet/Nutrition Diet/Nutrition Orders: Cardiac - Activity Activity Orders: Ambulate, Walker - Services Needed Following services are medically necessary services: Nursing, Physical Therapy, Occupational Therapy - Transfer Medications Prescriptions: amLODIPine [Norvasc] 10 mg PO DAILY #30 tablet Lisinopril [Zestril] 20 mg PO BID #60 tablet Metoprolol [Lopressor] 25 mg PO BID #60 tablet Home Medications: Atorvastatin Calcium [Lipitor] 20 mg PO HS 12/26/16 [History] Biotin 5,000 mcg PO DAILY 12/26/16 [History] Cholecalciferol (Vitamin D3) [Vitamin D3] 1,000 unit PO DAILY 03/09/17 [History] Ibuprofen [Motrin] 600 mg PO Q8HR PRN 03/09/17 [History] Krill/[place]-3/Dha/Epa/Lipids [Krill Oil 300 mg Softgel] 1 each PO DAILY [History] FentaNYL PATCH [Duragesic] 75 mcg TD Q72H 03/24/17 [History] Haloperidol 0.5 mg PO Q6H PRN 03/24/17 [History] Melatonin [Melatin] 3 mg PO HS 03/24/17 [History] Metformin HCl [Glucophage] 1,000 mg PO BID 03/24/17 [History] Omeprazole [PriLOSEC] 20 mg PO DAILY 03/24/17 [History] Ondansetron HCl [Zofran] 4 mg PO AD PRN 03/24/17 [History] Polyethylene Glycol 3350 [MiraLAX] 17 gm PO BID PRN 03/24/17 [History] Sennosides [Senna] 17.2 mg PO BID 03/24/17 [History] Lisinopril [Zestril] 20 mg PO BID #60 tablet 03/27/17 [Rx] Metoprolol [Lopressor] 25 mg PO BID #60 tablet 03/27/17 [Rx] OxyCODONE Immed Rel [Roxicodone 10 MG] 10 mg PO Q4H PRN 10 Days 03/27/17 [Rx] amLODIPine [Norvasc] 10 mg PO DAILY #30 tablet 03/27/17 [Rx] Allergies/Adverse Reactions: 3 Allergy/AdvReac Type Severity Reaction Status Date / Time No Known Allergies Allergy Verified 03/24/17 14:30 Certification: Further, I certify that my clinical findings support that this patient is homebound (i.e. absences from home require considerable and taxing effort and are for medical reasons or [employer] services or infrequently or short duration when for other reasons) because: Homebound Reason: Patient requires assistance of a person or device to safely leave home, Leaving home requires considerable and taxing effort due to condition, Altered mental status requiring supervision when leaving home Attestation: My signature below is to certify that this patient is under my care and that I, or nurse practitioner, or a physician's dental front office assistant working with me, has a face-to -face encounter with this patient.
[2017-03-27 15:20] VITALS: BP 144/74
== END 2017-03-27 15:56 | disposition home health service (06) | DRG 92 ==
LOC: EMEROO 14:00 → 2ANU 20:08 → SUATTDRO 20:08 → 2ANU 20:47
PROVIDERS: ADMIT Internal Medicine; ATTEND Internal Medicine